=== PATIENT | male | born 1975 | race American Indian/Alaskan Native ===

== ENCOUNTER 2021-03-08 19:40 | Emergency (ER) | payer BC ==
[2021-03-08 21:36] LABS: Basophils # (Auto) 0.1 K/mm3 (0.0-0.1); Basophils % (Auto) 0.8 % (0.0-1.8); Eosinophils # (Auto) 0.1 K/mm3 (0.0-0.4); Eosinophils % (Auto) 1.7 % (0.0-4.3); Hematocrit 41.3 % (35.5-45.6); Hemoglobin 14.1 gm/dl (11.8-15.2); Mean Corpuscular HGB Conc 34 % (32-34); Mean Corpuscular Volume 89 fl (84-94); Monocytes # (Auto) 0.6 K/mm3 (0.0-0.8); Monocytes % (Auto) 9.1 % (0.0-7.3); Platelet Count 223 K/mm3 (140-440); Red Blood Count 4.63 M/mm3 (3.65-5.03); Red Cell Distribution Width 13.9 % (13.2-15.2)
--- NOTE | 2021-03-08 21:58 | XRay Report ---
XR chest routine 2V INDICATION / CLINICAL INFORMATION: chest pressure. COMPARISON: None available. FINDINGS: SUPPORT DEVICES: None. HEART /PULMONARY VASCULATURE: No significant abnormality. LUNGS / PLEURA: No significant pulmonary or pleural abnormality. No pneumothorax. ADDITIONAL FINDINGS: No significant additional findings. IMPRESSION: 1. No acute findings. Signer Name: Marco Castro MD Signed: 03/08/2021 9:54 PM Workstation Name: [id number]
[2021-03-08 22:01] LABS: Alanine Aminotransferase 24 units/L (7-56); Albumin 4.5 g/dL (3.9-5); BUN/Creatinine Ratio 20; Blood Urea Nitrogen 20 mg/dL (9-20); Calcium 8.7 mg/dL (8.4-10.2); Hemolysis Index 35
[2021-03-09] MEDS ORDERED: KETOROLAC 60 MG/2 ML INJ IM ONE (02:41)
--- NOTE | 2021-03-09 02:41 | Emergency Department Report ---
ED General Adult HPI - General Chief complaint: Chest Pain Stated complaint: PRESSURE IN CHEST/BACK/ARM Time Seen by Provider: 03/09/21 02:28 Source: patient Mode of arrival: Ambulatory Limitations: No Limitations - History of Present Illness Initial comments: Patient is 45 years old male with history of hypertension diabetes and an injury to the left shoulder area. Stable. Patient presented to the ER complaining of left shoulder pain radiated to his left upper chest for the last 3 weeks. Patient stated that he is similar to what he has before. Pain increased with movement of the left upper extremity. Patient denies any shortness of breath, f ever or chills. No cough. - Related Data Allergies Allergy/AdvReac Type Severity Reaction Status Date / Time No Known Allergies Allergy Unverified 03/08/21 21:10 ED Review of Systems ROS: Stated complaint: PRESSURE IN CHEST/BACK/ARM Other details as noted in HPI Comment: All other systems reviewed and negative Constitutional: denies: chills, fever Respiratory: denies: cough, shortness of breath, SOB with exertion Cardiovascular: chest pain (Left upper chest). denies: palpitations Gastrointestinal: denies: abdominal pain, nausea, vomiting Musculoskeletal: back pain ED Past Medical Hx - Past Medical History Previous Medical History?: Yes Hx Hypertension: Yes Hx Diabetes: Yes Additional medical history: gastritis. high cholesterol - Surgical History Past Surgical History?: No - Social History Smoking Status: Current Every Day Smoker Substance Use Type: Alcohol ED Physical Exam - General Limitations: No Limitations General appearance: alert, in no apparent distress - Head Head exam: Present: atraumatic, normocephalic, normal inspection - Eye Eye exam: Present: normal appearance - ENT ENT exam: Present: normal exam, normal orophraynx, mucous membranes moist - Neck Neck exam: Present: normal inspection. Absent: tenderness, meningismus - Respiratory Respiratory exam: Present: normal lung sounds bilaterally, chest wall tenderness (Left upper chest tenderness) - Cardiovascular Cardiovascular Exam: Present: regular rate, normal rhythm, normal heart sounds - GI/Abdominal GI/Abdominal exam: Present: soft, normal bowel sounds. Absent: distended, tenderness, guarding, rebound, rigid, organomegaly, mass, bruit, pulsatile mass, hernia - Extremities Exam Extremities exam: Present: normal inspection, full ROM, normal capillary refill. Absent: tenderness - Back Exam Back exam: Present: normal inspection, full ROM. Absent: CVA tenderness (R), CVA tenderness (L) - Neurological Exam Neurological exam: Present: alert, oriented X3, CN II-XII intact, normal gait, reflexes normal. Absent: motor sensory deficit - Psychiatric Psychiatric exam: Present: normal mood - Skin Skin exam: Present: warm, intact, normal color ED Course Vital Signs 03/08/21 20:54 Temperature 98.6 F Pulse Rate 96 H Respiratory 16 Rate Blood Pressure 147/75 O2 Sat by Pulse 98 Oximetry ED Medical Decision Making - Lab Data Result diagrams: 03/08/21 21:12 03/08/21 21:12 - EKG Data -: EKG Interpreted by Ak EKG shows normal: sinus rhythm Rate: normal - EKG Data Interpretation: no acute changes - Radiology Data Radiology results: report reviewed - Medical Decision Making Patient is 45 years old male with history of hypertension diabetes and an injury to the left shoulder area. Stable. Patient presented to the ER complaining of left shoulder pain radiated to his left upper chest for the last 3 weeks. Patient stated that he is similar to what he has before. Pain increased with movement of the left upper extremity. Patient denies any shortness of breath, fever or chills. No cough. EKG showed no ST elevation or depression. Labs reviewed and is unremarkable including a negative troponin. Chest x-ray is unremarkable. Patient symptom is most likely musculoskeletal with a reproducible chest pain and increase of the pain with movement of the left upper extremity. Patient given Toradol injection. I gave patient a prescription for Naprosyn and Flexeril and strongly advised the patient follow-up with his primary care physician for outpatient cardiac work-up and advised to return to the ER if he develop any other symptoms. Critical care attestation.: If time is entered above; I have spent that time in minutes in the direct care of this critically ill patient, excluding procedure time. ED Disposition Clinical Impression: Atypical chest pain, Acute shoulder pain Disposition: - TO HOME OR SELFCARE Is pt being admited?: No Condition: Stable Instructions: Nonspecific Chest Pain, Adult, Shoulder Pain, [id number] Referrals: PRIMARY CARE, [Primary Care Provider] - 3-5 Days
[2021-03-09 05:26] VITALS: BP 135/89
--- NOTE | 2021-03-09 10:16 | Electrocardiograph Report ---
[facility] Test Date: 2021-03-08 Test Time: 21:02:32 Pat Name: TEO CADENA Department: Room: Gender: M Correction Officer Supervisor: EDNA : 1975 Requested By: AGUS JONES Order Number: [id number] Reading MD: Francisco Zuleta Measurements Intervals Printer Rate: 90 P: 53 NM: 154 QRS: -2 QRSD: 77 T: 23 QT: 356 QTc: 436 Interpretive Statements Sinus rhythm No previous ECG available for comparison Electronically Signed On 03-09-2021 10:16:20 EDT by Francisco Zuleta
== END 2021-03-09 05:24 | disposition home or self-care (01) ==
LOC: ED 19:40
DX: M25.512 Pain in left shoulder (principal); R07.89 Other chest pain; I10 Essential (primary) hypertension; E11.9 Type 2 diabetes mellitus without complications; F17.200 Nicotine dependence, unspecified, uncomplicated
CPT/HCPCS: 36415; 71046; 80053; 84484; 85025; 93005; 96372; 99283; J1885

== ENCOUNTER 2022-04-29 12:47 | Emergency (ER) | payer BC ==
[2022-04-29 15:13] LABS: Basophils % (Auto) 0.3 % (0.0-1.8); Eosinophils % (Auto) 0.1 % (0.0-4.3); Hemoglobin 14.6 gm/dl (11.8-15.2); Lymphocytes # (Auto) 1.2 K/mm3 (1.2-5.4); Lymphocytes % (Auto) 10.2 % (13.4-35.0); Mean Corpuscular HGB Conc 34 % (32-34); Mean Corpuscular Volume 86 fl (84-94); Monocytes # (Auto) 1.2 K/mm3 (0.0-0.8); Monocytes % (Auto) 9.8 % (0.0-7.3); Platelet Count 224 K/mm3 (140-440); Red Cell Distribution Width 13.3 % (13.2-15.2)
--- NOTE | 2022-04-29 15:13 | Emergency Department Report ---
ED Abdominal Pain HPI - General Chief Complaint: Abdominal Pain Stated Complaint: KIDNEY/BODY PAIN/FEVER Time Seen by Provider: 04/29/22 14:51 Source: patient Mode of arrival: Ambulatory Limitations: No Limitations - History of Present Illness Initial Comments: 46-year-old black male with a past medical history of diabetes, hypertension, and hyperlipidemia presents to the emergency department for evaluation of 1 day history of abdominal pain, kidney pain, body aches, and headache. He states that he had a fever last night of 105.6. He denies nausea, vomiting, diarrhea, dysuria, and penile discharge. He states that pain is worse is 8 out of 10, is intermittent, and described as crampy. MD Complaint: abdominal pain, flank pain -: Gradual, Last night Location: diffuse Radiation: none Migration to: no migration Severity: severe Severity scale (0 -10): 10 Quality: cramping Consistency: intermittent Associated Symptoms: fever. denies: nausea, vomiting, diarrhea, chills, dysuria, hematemesis, hematochezia, melena, hematuria, anorexia, syncope - Related Data Previous Rx's Medication Instructions Recorded Last Taken Type Cyclobenzaprine [Flexeril] 10 mg PO TID PRN #20 tablet 03/09/21 Unknown Rx Naproxen [Naprosyn] 500 mg PO BID #14 tablet 03/09/21 Unknown Rx Acetaminophen/Codeine [Tylenol 1 tab PO Q6H PRN #12 tab 04/29/22 Unknown Rx /Codeine # 3 tab] Ondansetron [Zofran Odt] 4 mg PO Q8HR PRN #12 tab.rapdis 04/29/22 Unknown Rx Sulfamethoxazole/Trimethoprim 1 each PO BID #10 tab 04/29/22 Unknown Rx [Bactrim DS TAB] metroNIDAZOLE [Flagyl] 500 mg PO BID 7 Days #14 tab 04/29/22 Unknown Rx Allergies Allergy/AdvReac Type Severity Reaction Status Date / Time No Known Allergies Allergy Unverified 03/08/21 21:10 ED Review of Systems ROS: Stated complaint: KIDNEY/BODY PAIN/FEVER Other details as noted in HPI Comment: All other systems reviewed and negative Constitutional: fever, malaise, weakness. denies: chills, diaphoresis Eyes: denies: vision change ENT: denies: congestion Respiratory: denies: cough, orthopnea, shortness of breath, SOB with exertion, SOB at rest, stridor Cardiovascular: denies: chest pain, palpitations, dyspnea on exertion, orthopnea, edema, syncope, paroxysmal nocturnal dyspnea Gastrointestinal: abdominal pain. denies: nausea, vomiting, diarrhea, hematemesis, melena, hematochezia Genitourinary: denies: urgency, dysuria, frequency, hematuria, discharge, testicular pain Musculoskeletal: back pain Skin: denies: rash, lesions Neurological: denies: headache, weakness ED Past Medical Hx - Past Medical History Hx Hypertension: Yes Hx Diabetes: Yes Additional medical history: gastritis. high cholesterol - Social History Smoking Status: Current Every Day Smoker Substance Use Type: Alcohol - Medications Home Medications: Home Medications Medication Instructions Recorded Confirmed Last Taken Type Cyclobenzaprine [Flexeril] 10 mg PO TID PRN #20 tablet 03/09/21 Unknown Rx Naproxen [Naprosyn] 500 mg PO BID #14 tablet 03/09/21 Unknown Rx Acetaminophen/Codeine [Tylenol 1 tab PO Q6H PRN #12 tab 04/29/22 Unknown Rx /Codeine # 3 tab] Ondansetron [Zofran Odt] 4 mg PO Q8HR PRN #12 tab.rapdis 04/29/22 Unknown Rx Sulfamethoxazole/Trimethoprim 1 each PO BID #10 tab 04/29/22 Unknown Rx [Bactrim DS TAB] metroNIDAZOLE [Flagyl] 500 mg PO BID 7 Days #14 tab 04/29/22 Unknown Rx ED Physical Exam - General Limitations: No Limitations General appearance: alert, in no apparent distress - Head Head exam: Present: atraumatic, normocephalic - Eye Eye exam: Present: normal appearance. Absent: scleral icterus, conjunctival injection, periorbital swelling, periorbital tenderness - ENT ENT exam: Present: normal exam - Neck Neck exam: Present: normal inspection, full ROM. Absent: tenderness, meningismus, lymphadenopathy - Respiratory Respiratory exam: Present: normal lung sounds bilaterally. Absent: respiratory distress, wheezes, rales, stridor, chest wall tenderness - Cardiovascular Cardiovascular Exam: Present: tachycardia, normal heart sounds - GI/Abdominal GI/Abdominal exam: Present: soft, tenderness (Right lower quadrant, left upper quadrant, and left lower quadrant.), normal bowel sounds. Absent: distended, guarding, rebound, rigid - Extremities Exam Extremities exam: Present: normal inspection, normal capillary refill. Absent: pedal edema, joint swelling, calf tenderness - Back Exam Back exam: Present: normal inspection. Absent: CVA tenderness (R), CVA tenderness (L) - Neurological Exam Neurological exam: Present: alert, oriented X3, normal gait - Psychiatric Psychiatric exam: Present: normal affect, normal mood - Skin Skin exam: Present: warm, dry, intact, normal color ED Course Vital Signs 04/29/22 04/29/22 13:52 18:01 Temperature 99.5 F 98.6 F Pulse Rate 114 H 89 Respiratory 18 16 Rate Blood Pressure 105/43 154/96 [Left] O2 Sat by Pulse 98 100 Oximetry ED Medical Decision Making - Lab Data Result diagrams: 04/29/22 14:50 04/29/22 14:50 - Radiology Data Radiology results: report reviewed, image reviewed CT abdomen and pelvis without contrast: FINDINGS: LOWER CHEST: No significant abnormality. LIVER: Moderate decreased attenuation characteristic for steatosis. Liver tiana ures 19.3 cm in length GALLBLADDER: No significant abnormality. BILE DUCTS: No significant abnormality. PANCREAS: No significant abnormality. SPLEEN: No significant abnormality. ADRENALS: No significant abnormality. RIGHT KIDNEY and URETER: No significant abnormality. LEFT KIDNEY and URETER: No significant abnormality. STOMACH and SMALL BOWEL: No significant abnormality. COLON: Moderate amount of intraluminal fluid throughout the colon with mild bowel wall thickening of transverse and descending colon characteristic for mild colitis. APPENDIX: No significant abnormality. PERITONEUM: No free fluid. No free air. No fluid collection. LYMPH NODES: No significant adenopathy. AORTA and ARTERIES: No significant abnormality. IVC and VEINS: No significant abnormality. URINARY BLADDER: No significant abnormality. REPRODUCTIVE ORGANS: No significant abnormality. ADDITIONAL FINDINGS: None. SKELETAL SYSTEM: No significant abnormality. IMPRESSION: 1. Mild colitis likely infectious in etiology. 2. Hepatic steatosis - Medical Decision Making 46-year-old black male with a past medical history of diabetes, hypertension, and hyperlipidemia presents to the emergency department for evaluation of 1 day history of abdominal pain, kidney pain, body aches, and headache. He states that he had a fever last night of 105.6. He denies nausea, vomiting, diarrhea, dysuria, and penile discharge. He states that pain is worse is 8 out of 10, is intermittent, and described as crampy. CT scan positive for colitis probable infectious. Patient refused to take Cipro, so he will be discharged home on Bactrim and Flagyl to take as directed. He is advised to follow-up with his primary care provider or education manager for further evaluation and management. He verbalizes understanding of and agreement with plan of care. Critical care attestation.: If time is entered above; I have spent that time in minutes in the direct care of this critically ill patient, excluding procedure time. ED Disposition Clinical Impression: Infectious colitis, Hepatic steatosis Disposition: HOME / SELF CARE / HOMELESS Is pt being admited?: No Does the pt Need Aspirin: No Condition: Stable Instructions: Antibiotic Medicine, Adult, [id number], Fatty Liver Disease, Probiotics Additional Instructions: Take medications as prescribed. Follow-up with your primary care provider or stomach doctor for further evaluation and management. Return to the emergency department as needed. Prescriptions: Sulfamethoxazole/Trimethoprim [Bactrim DS TAB] 1 each PO BID #10 tab metroNIDAZOLE [Flagyl] 500 mg PO BID 7 Days #14 tab Acetaminophen/Codeine [Tylenol /Codeine # 3 tab] 1 tab PO Q6H PRN #12 tab PRN Reason: Pain , Severe (7-10) Ondansetron [Zofran Odt] 4 mg PO Q8HR PRN #12 tab.rapdis PRN Reason: Nausea And Vomiting Referrals: DIEGO CURRY MD [Staff Physician] - 3-5 Days SEB BOYLE MD [Staff Physician] - 3-5 Days Time of Disposition: 17:44
[2022-04-29] MEDS ORDERED: SODIUM CHLORIDE 0.9% 1000 ML 1,000 ML IV ONE (15:17)
[2022-04-29] MEDS ORDERED: ONDANSETRON 4 MG/2 ML INJ IV ONE (15:18)
[2022-04-29] MEDS ORDERED: MORPHINE 4 MG/1 ML INJ IV ONE (15:18)
[2022-04-29 15:36] LABS: Albumin 4.2 g/dL (3.9-5); Calcium 9.1 mg/dL (8.4-10.2)
[2022-04-29 16:00] LABS: Bilirubin,Urine NEG (Negative); Blood,Urine NEG (Negative); Color,Urine Red (Yellow); Urobilinogen,Urine < 2.0 mg/dL (<2.0)
[2022-04-29 16:07] LABS: Amorphous Crystals,Urine 1+; Mucus,Urine 3+ /HPF
[2022-04-29 16:09] LABS: Protein,Urine >500 mg/dL (Negative)
--- NOTE | 2022-04-29 16:31 | Cat Scan Report ---
CT ABDOMEN AND PELVIS WITHOUT CONTRAST INDICATION: abdominal pain. TECHNIQUE: Axial CT images were obtained through the abdomen and pelvis without IV contrast. All CT scans at [facility] are performed using CT dose reduction for ALARA by means of automated exposure control. COMPARISON: None available. FINDINGS: LOWER CHEST: No significant abnormality. LIVER: Moderate decreased attenuation characteristic for steatosis. Liver measures 19.3 cm in length GALLBLADDER: No significant abnormality. BILE DUCTS: No significant abnormality. PANCREAS: No significant abnormality. SPLEEN: No significant abnormality. ADRENALS: No significant abnormality. RIGHT KIDNEY and URETER: No significant abnormality. LEFT KIDNEY and URETER: No significant abnormality. STOMACH and SMALL BOWEL: No significant abnormality. COLON: Moderate amount of intraluminal fluid throughout the colon with mild bowel wall thickening of transverse and descending colon characteristic for mild colitis. APPENDIX: No significant abnormality. PERITONEUM: No free fluid. No free air. No fluid collection. LYMPH NODES: No significant adenopathy. AORTA and ARTERIES: No significant abnormality. IVC and VEINS: No significant abnormality. URINARY BLADDER: No significant abnormality. REPRODUCTIVE ORGANS: No significant abnormality. ADDITIONAL FINDINGS: None. SKELETAL SYSTEM: No significant abnormality. IMPRESSION: 1. Mild colitis likely infectious in etiology. 2. Hepatic steatosis Signer Name: Boaz Mcgill MD Signed: 04/29/2022 4:26 PM Workstation Name: [id number]
[2022-04-29] MEDS ORDERED: metroNIDAZOLE 500 MG TAB PO ONE ×2 (17:16→17:28)
[2022-04-29] MEDS ORDERED: levoFLOXacin 500 MG TAB PO ONE (17:16)
[2022-04-29] MEDS ORDERED: SULFAMETHOXAZOLE/TRIMETHOPRIM 800/160MG DS TAB PO ONE (17:28)
[2022-04-29 18:02] VITALS: BP 154/96
== END 2022-04-29 18:01 | disposition home or self-care (01) ==
LOC: ED 12:47
DX: A09 Infectious gastroenteritis and colitis, unspecified (principal); K76.0 Fatty (change of) liver, not elsewhere classified; I10 Essential (primary) hypertension; E11.9 Type 2 diabetes mellitus without complications; F17.200 Nicotine dependence, unspecified, uncomplicated; F10.20 Alcohol dependence, uncomplicated
CPT/HCPCS: 36415; 74176; 80053; 81001; 83690; 85025; 96361; 96374; 96375; 99284; J2270; J2405; J7030